=== PATIENT | male | born 1935 | race Caucasian/White ===

== ENCOUNTER 2025-03-24 14:27 | Emergency (ER) | payer OTHER ==
[~2025-03-24] VITALS: Ht 175.3 cm; Wt 53.5 kg
[2025-03-24 14:54] LABS: PLATELET COUNT (AUTO) 461 K/uL (150-450); RED BLOOD CELL COUNT(AUTO) 4.06 MIL/uL (4.5-6.0); RED CELL DISTRIBUTION WIDTH 13.3 % (11.5-15.0); WHITE BLOOD COUNT (AUTO) 16.5 K/uL (4.3-11.0)
[2025-03-24 15:03] LABS: CALCIUM, SERUM 9.2 mg/dL (8.5-10.1); CREATININE 1.3 mg/dL (0.6-1.3); SODIUM SERUM 132 mmol/L (136-145); UREA NITROGEN, BLOOD 24 mg/dL (7-18)
[2025-03-24 15:09] LABS: ASPARTATE AMINOTRANSFERASE 35 U/L (15-37); TOTAL PROTEIN, SERUM 7.0 g/dL (6.4-8.2)
[2025-03-24 15:12] LABS: LACTIC ACID 4.0 mmol/L (0.4-2.0)
[2025-03-24 15:20] LABS: NT-PRO BNP 2162.0 pg/mL (0-125)
[2025-03-24 15:23] LABS: SERUM AMMONIA < 10 umol/L (11-32)
[2025-03-24] MEDS: IV NS 0.9% 1,000 ML BAG IV ONE (15:28)
[2025-03-24] MEDS ORDERED: IOHEXOL-300 100 ML VIAL IV ONE (15:33)
[2025-03-24] MEDS ORDERED: IV NS 0.9% 250 ML IV ONE ×2 (15:33→16:33)
[2025-03-24 15:46] LABS: APPEARANCE,URINE CLEAR (CLEAR); BLOOD, URINE Moderate Ery/uL (NEGATIVE); LEUKOCYTE ESTERASE ,URINE Negative (NEGATIVE); UGLUCOSE Negative (NEGATIVE)
[2025-03-24 15:55] LABS: NITRITE, URINE NEGATIVE (NEGATIVE)
[2025-03-24 16:07] LABS: ADD URINE CULTURE NO; SQUAMOUS EPITHELIAL CELL,UR 0-2 /HPF (None Seen)
[2025-03-24] MEDS ORDERED: IOHEXOL-350 100 ML VIAL IV ONE (16:33)
[2025-03-24 17:45] LABS: AMPHETAMINE, URINE NEGATIVE (NEGATIVE); BARBITURATE, URINE NEGATIVE (NEGATIVE); BENZODIAZEPINE, URINE NEGATIVE (NEGATIVE); CANNABINOID, URINE NEGATIVE (NEGATIVE); COCCAINE, URINE NEGATIVE (NEGATIVE); OPIATE, URINE NEGATIVE (NEGATIVE)
[2025-03-24] MEDS: CEFEPIME 1 GM in IV D5W 50 ML IV ONE (17:48)
[2025-03-24] MEDS: VANCOMYCIN 1 GM in IV D5W 250 ML IV ONE (18:20)
[2025-03-24] MEDS ORDERED: LABETALOL HCL IV 100MG VIAL ONE (20:05)
[2025-03-24] MEDS: LABETALOL HCL IV 100MG VIAL IV ONE (20:13)
[2025-03-24 21:45] VITALS: BP 121/84; TEMP 98.3; O2SAT 99
== END 2025-03-24 21:46 | disposition short-term general hospital (02) ==
LOC: ER 14:30
DX: J18.9 Pneumonia, unspecified organism (principal); R53.1 Weakness; F02.80 Dementia in other diseases classified elsewhere, unspecified severity, without behavioral disturbance, psychotic disturbance, mood disturbance, and anxiety; E87.20 Acidosis, unspecified; I10 Essential (primary) hypertension; G30.9 Alzheimer's disease, unspecified; I48.91 Unspecified atrial fibrillation; R62.7 Adult failure to thrive; R06.02 Shortness of breath; Z20.822 Contact with and (suspected) exposure to COVID-19
CPT/HCPCS: 99285; 70450; 74174; 96365; 71045; 96367; 96361; 96375; 87426; 93005; 82140; 85025; 80048; 83605 ×2; 80076; 83735; 36415; 84443; 84484 ×2; 83880; 82962; 80307; 81001; 74177; J3490; J3373; J7060; J7030; J7050 ×2; A4223; J0692; Q9967 ×2